=== PATIENT | male | born 1985 | race Caucasian/White ===

== ENCOUNTER 2016-09-22 17:29 | Emergency (ER) | payer BC, OTHER ==
[~2016-09-22] VITALS: Ht 177.8 cm; Wt 74.0 kg
[~2016-09-22 17:29] MED LIST: LRT5 PO; PENI-82 PO
[2016-09-22 17:43] VITALS: TEMP 36.5; Ht 177.8 cm; Wt 74.0 kg
[2016-09-22] MEDS ORDERED: SODIUM CHLORIDE 0.9% 1000ML 1,000 ML IV STA (17:58)
[2016-09-22] MEDS ORDERED: HYDROmorphone INJ 1 MG/ML SYR IV STA (17:58)
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
[2016-09-22] MEDS ORDERED: DIPHTHERIA/TETANUS/PERTUSSIS 0.5 ML SYR/VIAL IM. ONE (18:00)
[2016-09-22] MEDS ORDERED: OPTIRAY 320 IV PRN (18:15)
--- NOTE | 2016-09-22 18:49 | DIAGNOSTIC IMAGING REPORT ---
RIGHT ELBOW 3 VIEWS HISTORY: right elbow trauma Right COMPARISON: None. FINDINGS: There is no fracture or dislocation. Mild posterior soft tissue swelling. No elbow effusion. No radiopaque foreign bodies. IMPRESSION: No fractures. Electronically signed by: Markos Nunez M.D. 09/22/2016 6:48 PM Dictated Date/Time: 09/22/2016 6:47 PM
[2016-09-22 18:53] LABS: ISTAT HEMOGLOBIN 15.6 g/dl (14.0-18.0); ISTAT IONIZED CALCIUM 1.12 mmol/l (1.12-1.32)
--- NOTE | 2016-09-22 19:11 | DIAGNOSTIC IMAGING REPORT ---
CHEST ABDOMEN AND PELVIS CT WITH CONTRAST CT DOSE: 1000.94 mGy.cm HISTORY: right chest and abdominal trauma TECHNIQUE: Multiaxial CT images of the chest , abdomen and pelvis were performed following the intravenous administration of contrast. COMPARISON: None. FINDINGS: The lungs are clear. The mediastinal vascular structures are within normal limits. No mediastinal or hilar lymphadenopathy. No pleural effusion or pneumothorax. No fractures. Mild skin thickening and subcutaneous fat stranding within the right anterior abdominal wall and right lateral hip. This is consistent with a small soft tissue contusion. The liver, spleen, pancreas, adrenal glands, kidneys, and gallbladder are unremarkable. There is contrast within the distended bladder. No pelvic free fluid. No fractures within the visualized osseous structures. No bowel wall thickening or obstruction. Normal appendix. IMPRESSION: Mild soft tissue contusions within the right abdominal wall and right lateral hip. Otherwise, no acute process seen within the chest, abdomen, or pelvis. Electronically signed by: Markos Nunez M.D. 09/22/2016 7:09 PM Dictated Date/Time: 09/22/2016 6:57 PM
[2016-09-22] MEDS ORDERED: HYDROmorphone INJ 2 MG/ML SYR/VIAL IV STA (19:12)
[2016-09-22] MEDS ORDERED: LORAZEPAM 2 MG/ML 1 ML VIAL IV STA (20:04)
[2016-09-22] MEDS ORDERED: FENTANYL CITRATE INJ 50 MCG/1 ML 2 ML VIAL ONE (20:14)
[2016-09-22] MEDS ORDERED: LIDOCAINE HCL 2% JELLY 30 ML TUBE EXT ONE (20:16)
[2016-09-22] MEDS ORDERED: LIDOCAINE HCL 2% JELLY 30 ML TUBE EXT STA (20:16)
[2016-09-22] MEDS ORDERED: OXYCODONE HCL IR 5 MG TAB (IMMEDIATE RELEASE) PO STA (20:54)
[2016-09-22] MEDS ORDERED: OXYC1TAB3 PO (20:57)
[2016-09-22] MEDS ORDERED: CEPH500C PO (20:57)
[2016-09-22] MEDS ORDERED: CEPHALEXIN MONOHYDRATE 250 MG CAP PO ONE (21:00)
[2016-09-22] MEDS ORDERED: OXYCODONE IR HOME PACK PO ONE (21:00)
[2016-09-22 21:35] VITALS: BP 127/102; PULSE 82; O2SAT 100
== END 2016-09-22 21:36 | disposition home or self-care (01) ==
LOC: C.EDB 17:30 → C.EDC 21:36
DX: S20.311A Abrasion of right front wall of thorax, initial encounter (principal); S30.811A Abrasion of abdominal wall, initial encounter; S40.811A Abrasion of right upper arm, initial encounter; S50.311A Abrasion of right elbow, initial encounter; S60.811A Abrasion of right wrist, initial encounter; S70.211A Abrasion, right hip, initial encounter; S80.211A Abrasion, right knee, initial encounter; S80.212A Abrasion, left knee, initial encounter; S20.211A Contusion of right front wall of thorax, initial encounter; Z23 Encounter for immunization; V86.59XA Driver of other special all-terrain or other off-road motor vehicle injured in nontraffic accident, initial encounter; F17.200 Nicotine dependence, unspecified, uncomplicated